=== PATIENT | male | born 1995 | race Caucasian/White ===

== ENCOUNTER 2024-07-29 13:54 | Emergency (ER) | payer SELFPAY ==
[2024-07-29 14:00] VITALS: BP 138/63; PULSE 79; RESP 17; TEMP 36.6; O2SAT 100
--- NOTE | 2024-07-29 15:19 | ED_ITS ---
HPI - Skin/Abscess/Foreign Bdy General Chief complaint: Skin/Abscess/Foreign Body Stated complaint: scabies? Source: patient Mode of arrival: ambulatory Limitations: no limitations History of Present Illness HPI narrative: This is a 28-year-old male who presents to the ED with extremely itchy skin lesions to the bilateral upper and lower extremities as well as abdomen. States he was exposed to someone a couple of weeks ago with scabies and feels that he probably has the same. Denies fevers, chills, nausea, vomiting, diarrhea. Review of Systems Review of Systems: All systems as dictated in HPI Exam Narrative: GENERAL: Well-appearing, well-nourished, and in no acute distress. MSK: Normal range of motion. No edema. SKIN: Linear burrows present with diffuse excoriations. NEURO: Alert and oriented x4. No focal deficits. PSYCH: Normal mood and affect. Course Vital Signs Vital signs: Vital Signs Temperature 97.9 F 07/29/24 14:00 Pulse Rate 79 07/29/24 14:00 Respiratory Rate 17 07/29/24 14:00 Blood Pressure 138/63 07/29/24 14:00 Pulse Oximetry 100 07/29/24 14:00 Oxygen Delivery Room Air 07/29/24 14:00 Temperature 97.9 F 07/29/24 14:00 Pulse Rate 79 07/29/24 14:00 Respiratory Rate 17 07/29/24 14:00 Blood Pressure 138/63 07/29/24 14:00 Pulse Oximetry 100 07/29/24 14:00 Oxygen Delivery Room Air 07/29/24 14:00 MDM - Skin/Abscess/Foreign Bdy MDM Narrative Medical decision making narrative: This is a 28-year-old male who presents to the ED for linear burrows and concern for scabies with recent exposure. Vitals are normal. Exam is remarkable for the above and is consistent with scabies infection. Rx for permethrin cream given. Pt will be discharged in stable condition. Return precautions given and supportive measures discussed. Pt is understanding and agreeable with plan for discharge and follow-up with PCP. Discharge Plan Discharge Clinical Impression: Scabies Patient Disposition: Home, Self-Care Condition: Stable Instructions: Antibiotic Form, Scabies (ED) Additional Instructions: If you have any new or worsening symptoms please return to the ER for further evaluation. Prescriptions: New permethrin 5 % cream 1 applic topical Q14D Qty: 60 0RF Rx Instructions: apply second treatment 14 days after first treatment if live lice remain Follow-up/Referrals: PHYSICIAN,[facility] [employer] [Non-Staff] - Stand Alone Forms: Work/School Release IP Time of Disposition: 15:21
== END 2024-07-29 15:44 | disposition home or self-care (01) ==
PROVIDERS: Emergency Provider Physician Assistant
DX: B86 Scabies (principal)
CPT/HCPCS: 99283